=== PATIENT | male | born 1985 | race Caucasian/White ===

== ENCOUNTER → 2016-11-13 | Outpatient (CLI) | payer BC ==
--- NOTE | 2016-11-13 23:52 | CONS ---
DATE OF CONSULTATION: 11/13/2016 CONSULTATION/NEW PATIENT EVALUATION: HISTORY OF PRESENT ILLNESS/SLEEP-WAKE EVALUATION: 31-year-old gentleman who has been evaluated in the sleep center for possible obstructive sleep apnea-hypopnea syndrome. SLEEP SCHEDULE: Patient's usual sleep schedule on working days is from 11:00 p.m. to 7:20 a.m. on weekends from around 11:30 p.m. to 9 or 9:30 a.m. FALLING ASLEEP: Sometimes he has problem with falling asleep. He has a TV set in bedroom. DURING SLEEP: Prefers to sleep on his stomach position. He snores, has witnessed episodes of stopped breathing during this sleep, wakes up with palpitations and heartburn, gasping for air. He worries about his sleep. DURING THE DAY/WAKE STATE: [place] Sleepiness Scale is acceptable range. Usually does not take any naps. He increased his weight about 30 pounds for the last 10 years. No history of hypnagogical hallucinations, sleep paralysis or cataplexy. PAST MEDICAL HISTORY: Positive for allergy, asthma, nasal problems, acid reflux. PAST SURGICAL HISTORY: Sinus surgery, surgery for nasal septum deviation. REVIEW OF SYSTEMS: Awakenings from sleep up to 3 times with up to 2 episodes of nocturia. No fevers. No double vision. No recent chest pain. No shortness of breath. No abdominal pain. No bleeding episodes. No blood in urine. No seizure episodes. FAMILY HISTORY: Hypertension, heart problems, hyperlipidemia, arthritis, asthma, sinus problems snoring, cancer, acid reflux. SOCIAL HISTORY: Negative for smoking or using alcohol. PHYSICAL EXAMINATION: 31-year-old gentleman without distress. VITAL SIGNS: BP 137/97, HR 72, RR 16. Height 5 feet 10 inches. Weight 193. BMI 27.6. Neck 16 inches in circumference. Temperature 97.9. Oxygen saturation at room air 98%. HEENT: PERRLA, EOMI oropharynx low position of soft palate, restriction of nasal breathing, still probably of some nasal septum deviation. NECK: Supple. No JVD. Thyroid is not palpable. LUNGS: Clear to percussion and to auscultation. Good air exchange. No wheezing or rhonchi. HEART: S1, S2 regular. No murmurs, gallops or rubs. ABDOMEN: Soft and nontender. Bowel sounds are present. No organomegaly appreciated. EXTREMITIES: No clubbing or cyanosis. CARDIAC TECHNOLOGIST: Awake, alert, and oriented x3. Cranial nerves 2 to 7 intact. There is no fasciculation or atrophy noted. No focal deficits observed. ASSESSMENT: 1. Snoring, witnessed episodes of stopped breathing during sleep, low position of soft palate, awakenings from sleep, obstructive sleep apnea/hypopnea syndrome surgery. 2. Allergies. 3. Asthma. 4. Acid reflux. 5. Status post sinus surgery. 6. Status post nasal surgery for nasal septum deviation. 7. Some restriction of nasal breathing. Patient still continued some nasal septum deviation. PLAN: 1. Home sleep apnea test for evaluation of patient's breathing during sleep. 2. CPAP/BiPAP titration if sleep study confirms obstructive sleep apnea-hypopnea syndrome. 3. Preferable position during sleep on the side. 4. No driving if patient feels any sleepiness. Patient is aware of civil and criminal liability for unsafe driving. 5. I will see patient for follow-up visit to explain results of the testing and following plan. Thank you very much for referring this patient for consultation. Sincerely, Leonard Garcia MD, PhD, FAASM. Diplomat of [place] [employer], Sleep Medicine Board by [place] [employer] [place] [employer] Customer Experience Advisor of [facility]
== END | disposition home or self-care (01) ==
LOC: SLEEP 15:53
PROVIDERS: ATTEND Internal Medicine
DX: R06.83 Snoring (principal); J45.909 Unspecified asthma, uncomplicated; K21.9 Gastro-esophageal reflux disease without esophagitis; T78.40XA Allergy, unspecified, initial encounter; Z98.890 Other specified postprocedural states
CPT/HCPCS: 99211

== ENCOUNTER → 2017-03-17 | Outpatient (CLI) | payer BC | END | disposition home or self-care (01) | LOC: LABWHC1 09:09 | PROVIDERS: ATTEND Family Medicine | DX: R79.89 Other specified abnormal findings of blood chemistry (principal) | CPT/HCPCS: 36415; 84402; 84403 ==

== ENCOUNTER → 2017-04-28 | Outpatient (CLI) | payer BC ==
--- NOTE | 2017-04-30 06:47 | ECHOF ---
Referral Reason:R00.1 Bradycardia MEASUREMENTS -------- HEIGHT: 180.3 cm WEIGHT: 88.0 kg BP: 131/87 RVIDd: 3.3 cm (< 3.3) IVSd: 1.0 cm (0.6 - 1.1) LVIDd: 4.9 cm (3.9 - 5.3) LVPWd: 1.0 cm (0.6 - 1.1) IVSs: 1.5 cm LVIDs: 3.9 cm LVPWs: 1.5 cm LAESV Index (A-L): 21.39 ml/m Ao Diam: 2.6 cm (2.0 - 3.7) AV Cusp: 2.0 cm (1.5 - 2.6) LA Diam: 3.1 cm (2.7 - 3.8) MV EXCURSION: 24.078 mm (> 18.000) MV EF SLOPE: 206 mm/s (70 - 150) EPSS: 0.6 cm MV E Abdulaziz: 0.55 m/s MV DecT: 323 ms MV A Abdulaziz: 0.49 m/s MV E/A Ratio: 1.12 RAP: 5.00 mmHg RVSP: 9.13 mmHg FINDINGS -------- Sinus rhythm. This was a technically good study. The left ventricular size is normal. Left ventricular wall thickness is normal. Overall left ventricular systolic function is normal with, an EF between 55 - 60 %. The right ventricle is normal in size and function. Normal LA size by volume 22+/-6 ml/m2. The right atrium is normal in size. The aortic valve is trileaflet, and appears structurally normal. No aortic stenosis or regurgitation. The mitral valve leaflets are mildly thickened. There is trace mitral regurgitation. Trace tricuspid regurgitation present. Right ventricular systolic pressure is normal at < 35 mmHg. There is no evidence of pulmonary hypertension. The pulmonic valve is normal. The aortic root size is normal. Normal inferior vena cava with normal inspiratory collapse consistent with estimated right atrial pressure of 5 mmHg. The pericardium is normal. There is no pericardial effusion. CONCLUSIONS -------- 1. Sinus rhythm. 2. Right ventricular systolic pressure is normal at < 35 mmHg. 3. There is no evidence of pulmonary hypertension. 4. The aortic root size is normal. 5. This was a technically good study. 6. The left ventricular size is normal. 7. Overall left ventricular systolic function is normal with, an EF between 55 - 60 %. 8. Normal LA size by volume 22+/-6 ml/m2. 9. The aortic valve is trileaflet, and appears structurally normal. No aortic stenosis or regurgitation. 10. The mitral valve leaflets are mildly thickened. 11. There is trace mitral regurgitation. 12. Trace tricuspid regurgitation present. INDUSTRIAL ACCOUNTANT: Fausto Marinelli RDCS
== END | disposition home or self-care (01) ==
LOC: RADECHMAIN 16:18
PROVIDERS: ATTEND Family Medicine
DX: I08.1 Rheumatic disorders of both mitral and tricuspid valves (principal)
CPT/HCPCS: 93306

== ENCOUNTER → 2017-09-17 | Outpatient (CLI) | payer BC ==
--- NOTE | 2017-09-17 09:23 | US ---
EXAMINATION TYPE: US abdomen complete DATE OF EXAM: 09/17/2017 COMPARISON: NONE CLINICAL HISTORY: S39.011A Strain of Abdominal muscle. Patient stated has multiple abdominal areas of pain noted x 2 months; exercises regularly; on C PAP machine x 2 months EXAM MEASUREMENTS: Liver Length: 16.0 cm Gallbladder Wall: 0.1 cm CBD: 0.4 cm Spleen: 11.3 cm Right Kidney: 10.4 x 5.2 x 4.4 cm Left Kidney: 10.8 x 6.4 x 6.1 cm Pancreas: wnl Liver: Hyperechoic to right renal cortex. Additionally there is poor visualization of the portal tri ads. These findings most commonly related to hepatic steatosis and limits evaluation for underlying h epatic masses. Gallbladder: wnl Evidence for sonographic Vega's sign: no CBD: wnl Spleen: wnl Right Kidney: No hydronephrosis or masses seen Left Kidney: No hydronephrosis or masses seen Upper IVC: wnl Abd Aorta: wnl At upper abdominal area of pain: thickness is noted more prominently at right rectus abdominus muscle at mid abdomen on images #[id number], [id number], [id number], [id number], [id number], and [id number]. At the other areas of pain assess ed no hernia is identified. IMPRESSION: 1. Findings most compatible with hepatic steatosis. 2. Right rectus abdominis muscular prominence in comparison to the left with no focal identifiable he matoma, abscess, or mass. 3. No sonographic evidence of abdominal hernia in the area of the patient's stated pain with the Vals zapata maneuver.
== END | disposition home or self-care (01) ==
LOC: RADUSWWP 07:30
PROVIDERS: ATTEND Family Medicine
DX: S39.011A Strain of muscle, fascia and tendon of abdomen, initial encounter (principal)
CPT/HCPCS: 76700

== ENCOUNTER → 2017-10-14 | Outpatient (CLI) | payer BC ==
[2017-10-14 12:33] LABS: HCT 51.5 % (39.0-53.0); HGB 16.9 gm/dL (13.0-17.5); MCH 28.7 pg (25.0-35.0); MCHC 32.9 g/dL (31.0-37.0); MCV 87.2 fL (80.0-100.0); Mean Platelet Volume 7.4; Platelet Count 214 k/uL (150-450); RDW 12.8 % (11.5-15.5); WBC 5.4 k/uL (3.8-10.6)
== END | disposition home or self-care (01) ==
LOC: LABWHC1 11:48
PROVIDERS: ATTEND Physical Medicine & Rehabilitation
DX: M54.2 Cervicalgia (principal); M24.9 Joint derangement, unspecified; M25.511 Pain in right shoulder; M75.51 Bursitis of right shoulder; E29.1 Testicular hypofunction
CPT/HCPCS: 36415; 82306; 82672; 84402; 84403; 85027

== ENCOUNTER 2017-10-16 10:09 | Day surgery (SDC) | payer BC ==
[2017-10-14 09:17] VITALS: BMI 27.3
[~2017-10-16 10:09] MED LIST: LACTATED RINGERS 1,000 ML IV SCH
[2017-10-16 12:09] VITALS: TEMP 97.4
[2017-10-16] MEDS ORDERED: LIDOCAINE 1% 20 ML VIAL (10MG/ML) FOR IV START INTRADERMA ONE (12:12)
[2017-10-16] MEDS ORDERED: MIDAZOLAM 2 MG/2 ML VIAL ONE (12:18)
[2017-10-16] MEDS ORDERED: fentaNYL (PF) 50 MCG/ML 2 ML AMP ONE (12:18)
[2017-10-16] MEDS ORDERED: PROPOFOL 10 MG/ML 20 ML VIAL IV ONE (12:18)
--- NOTE | 2017-10-16 13:00 | P.PCN ---
Date of Procedure: 10/16/17 Procedure(s) Performed: BRIEF HISTORY: Patient is a 32-year-old pleasant white male, scheduled for an elective colonoscopy as a part of evaluation of blood in the stool. PROCEDURE PERFORMED: Colonoscopy. PREOPERATIVE DIAGNOSIS: Blood in the stool. IV sedation per Anesthesia. PROCEDURE: After informed consent was obtained, the patient, was brought into the endoscopy unit. IV sedation was administered by Anesthesia under continuous monitoring. Digital rectal examination was normal. Initially the Olympus CF- 160 flexible video colonoscope was then inserted in the rectum, gradually advanced into the cecum without any difficulty. Careful examination was performed as the scope was gradually being withdrawn. Ileocecal valve and the appendiceal orifice were visualized and appeared normal. Prep was excellent. Mucosa of the cecum, ascending colon, transverse colon, descending colon, sigmoid colon, and rectum appeared normal. Retroflexion was performed in the rectum and no lesions were seen. The patient tolerated the procedure well. IMPRESSION: Normal-appearing colon from rectum to cecum with no evidence of colorectal neoplasia. RECOMMENDATIONS: Findings of this examination were discussed with the patient as well as his family. He was advised to be a high-fiber diet and take fiber supplements a regular basis..
[2017-10-16 13:23] VITALS: BP 118/60; PULSE 70; RESP 16
== END 2017-10-16 13:33 | disposition home or self-care (01) ==
LOC: ORWHC2ENDO 10:09
PROVIDERS: ATTEND Internal Medicine Gastroenterology
DX: K92.1 Melena (principal); J45.909 Unspecified asthma, uncomplicated; G47.33 Obstructive sleep apnea (adult) (pediatric); Z99.89 Dependence on other enabling machines and devices; Z88.2 Allergy status to sulfonamides; Z79.899 Other long term (current) drug therapy; Z79.890 Hormone replacement therapy
CPT/HCPCS: 45378; J2250; J3010; J2704

== ENCOUNTER → 2018-07-19 | Outpatient (CLI) | payer OTHER | LOC: LABWHC1 06:35 | PROVIDERS: ATTEND Physical Medicine & Rehabilitation | DX: M54.5 Low back pain (principal); M47.817 Spondylosis without myelopathy or radiculopathy, lumbosacral region | CPT/HCPCS: 36415; 82672; 84153; 84402; 84403 ==

== ENCOUNTER 2018-08-11 05:23 | Emergency (ER) | payer OTHER ==
[2018-08-11 05:30] VITALS: PULSE 81; TEMP 98
[2018-08-11] MEDS ORDERED: SODIUM CHLORIDE 0.9% 1,000 ML IV STA (05:38)
[2018-08-11] MEDS ORDERED: FAMOTIDINE 20 MG/2 ML VIAL IV STA (05:39)
--- NOTE | 2018-08-11 05:41 | ED ---
Abdominal Pain HPI - General Chief Complaint: Abdominal Pain Stated Complaint: abd pain Time Seen by Provider: 08/11/18 05:28 Source: EMS Mode of arrival: EMS Limitations: no limitations - History of Present Illness Initial Comments: Charlie is a previously healthy 33-year-old male who presents the emergency department stay for evaluation of epigastric abdominal pain, nausea, vomiting and diarrhea. Patient reports he was in his usual state of health yesterday, he celebrated Gilby with the family, had [place] dinner. Patient reports he is feeling well when he went to bed. He woke at 2 AM with sudden onset of nausea and vomiting. Patient reports he's had innumerable episodes of nonbloody nonbilious emesis and nonbloody diarrhea. Patient reports that he then developed cramping epigastric abdominal pain he states that he was curled up in a ball sitting on the toilet and was unable to move or stand at which time his called 911 for transport to the emergency department. In route to the hospital patient was given Toradol, Zofran and IV fluids and upon arrival reports that his symptoms have improved significantly. Has no history of similar symptoms like this in the past, he was evaluated in the past for blood in his stool was advised he had anal fissures. A colonoscopy with no acute findings. He has no history of ulcer colitis or Crohn 's. He has no history of gallbladder dysfunction or pancreatitis. He does report he had a glass of wine yesterday but has not had any binge alcohol drinking. - Related Data Home Medications Medication Instructions Recorded Confirmed Testosterone Cypionate 100 mg IM ABRAMS 10/16/17 08/11/18 [Depo-Testosterone] Anastrozole [Arimidex] 1 mg PO Q48H 08/11/18 08/11/18 Citalopram Hydrobromide [CeleXA] 10 mg PO HS 08/11/18 08/11/18 Allergies Allergy/AdvReac Type Severity Reaction Status Date / Time Sulfa (Sulfonamide Allergy Rash/Hives Verified 08/11/18 07:03 Antibiotics) Review of Systems ROS Statement: Those systems with pertinent positive or pertinent negative responses have been documented in the HPI. ROS Other: All systems not noted in ROS Statement are negative. Past Medical History Past Medical History: Asthma, GERD/Reflux, GI Bleed, Sleep Apnea/CPAP/BIPAP Additional Past Medical History / Comment(s): sleep apnea with c-pap, environmental allergies, blood in stool and abdominal pain History of Any Multi-Drug Resistant Organisms: None Reported Past Surgical History: No Surgical Hx Reported Additional Past Surgical History / Comment(s): sinus surgery Past Anesthesia/Blood Transfusion Reactions: Previous Problems w/ Anesthesia Additional Past Anesthesia/Blood Transfusion Reaction / Comment(s): "long time coming out of it" Past Psychological History: Anxiety Smoking Status: Never smoker Past Alcohol Use History: Occasional Past Drug Use History: None Reported - Past Family History Father Family Medical History: Coronary Artery Disease (CAD), Myocardial Infarction (DE ) Additional Family Medical History / Comment(s): colon resection Brother(s) Additional Family Medical History / Comment(s): diverticulitis General Exam - General Exam Comments Initial Comments: Physical Exam GENERAL: Patient is well-developed and well-nourished. Patient is nontoxic and well- hydrated and is in no distress. HENT: Normocephalic, Atraumatic. EYES: PERRL, EOMI PULMONARY: Unlabored respirations. No audible rales rhonchi or wheezing was noted. CARDIOVASCULAR: There is a regular rate and rhythm without any murmurs gallops or rubs. ABDOMEN: Soft and nontender with normal bowel sounds. SKIN: Skin is clear with no lesions or rashes and otherwise unremarkable. : Deferred NEUROLOGIC: Patient is alert and oriented x3. Moving all extremities spontaneously MUSCULOSKELETAL: Normal extremities with adequate strength and full range of motion. No lower extremity swelling or edema. No calf tenderness. PSYCHIATRIC: Normal psychiatric evaluation. Limitations: no limitations Limitations: no limitations Course Vital Signs 08/11/18 08/11/18 05:24 07:02 Temperature 98.0 F Pulse Rate 81 Respiratory 18 16 Rate Blood Pressure 135/91 123/72 O2 Sat by Pulse 96 97 Oximetry Medical Decision Making - Medical Decision Making Patient was seen and evaluated history was obtained from patient, and EMS Patient with 3-4 hours of nausea, vomiting, diarrhea and epigastric abdominal pain. Symptoms resolved after IV fluids, Toradol and Zofran. Patient resting comfortably in the ER bed now. Labs will be ordered to evaluate CBC CMP and lipase and amylase. Labs revealed with leukocytosis with neutrophilia this is likely reactive to the acute nausea and vomiting Labs with multiple mild electrolyte abnormalities, mildly elevated creatinine and BUN 6 just above dehydration Patient received 2 L IV fluids fine patient was reevaluated and reports he is feeling much better, nausea has subsided significantly he's had no further vomiting or diarrhea while in the emergency department. Patient believes he has food poisoning which is quite likely. At this time patient's comfortable with the plan for discharge home. I will order the patient a Zofran ODT starter pack should he need further Zofran throughout the day patient is agreeable with this. All questions pertaining care were answered return parameters were discussed patient was discharged home in stable condition. - Lab Data Result diagrams: 08/11/18 05:33 08/11/18 05:33 Lab Results 08/11/18 08/11/18 Range/Units 05:33 05:33 WBC 18.1 H (3.8-10.6) k/uL RBC 6.19 H (4.30-5.90) m/uL Hgb 18.6 H (13.0-17.5) gm/dL Hct 53.7 H (39.0-53.0) % MCV 86.7 (80.0-100.0) fL MCH 30.0 (25.0-35.0) pg MCHC 34.6 (31.0-37.0) g/dL RDW 12.7 (11.5-15.5) % Plt Count 187 (150-450) k/uL Neutrophils % (Manual) 71 % Band Neutrophils % 18 % Lymphocytes % (Manual) 8 % Monocytes % (Manual) 3 % Eosinophils % (Manual) 1 % Neutrophils # (Manual) 16.10 H (1.3-7.7) k/uL Lymphocytes # (Manual) 1.45 (1.0-4.8) k/uL Monocytes # (Manual) 0.54 (0-1.0) k/uL Eosinophils # (Manual) 0.18 (0-0.7) k/uL Nucleated RBCs 0 (0-0) /100 WBC Polychromasia Present Poikilocytosis (manual Present Anisocytosis (manual) Present Sodium 141 (137-145) mmol/L Potassium 4.9 (3.5-5.1) mmol/L Chloride 109 H (98-107) mmol/L Carbon Dioxide 20 L (22-30) mmol/L Anion Gap 12 mmol/L BUN 23 H (9-20) mg/dL Creatinine 1.26 H (0.66-1.25) mg/dL Est GFR (CKD-EPI)AfAm 87 (>60 ml/min/1.73 sqM) Est GFR (CKD-EPI)NonAf 76 (>60 ml/min/1.73 sqM) Glucose 116 H (74-99) mg/dL Calcium 9.1 (8.4-10.2) mg/dL Total Bilirubin 1.1 (0.2-1.3) mg/dL AST 56 (17-59) U/L ALT 46 (21-72) U/L Alkaline Phosphatase 47 (38-126) U/L Total Protein 7.7 (6.3-8.2) g/dL Albumin 4.6 (3.5-5.0) g/dL Amylase 33 (30-110) U/L Lipase 27 (23-300) U/L Disposition Clinical Impression: Nausea vomiting and diarrhea Disposition: HOME SELF-CARE Condition: Good Instructions: Acute Nausea and Vomiting (ED) Is patient prescribed a controlled substance at d/c from ED?: No Referrals: Diego Ortega MD [Primary Care Provider] - 1-2 days Time of Disposition: 07:24
[2018-08-11 05:57] LABS: HCT 53.7 % (39.0-53.0); HGB 18.6 gm/dL (13.0-17.5); MCHC 34.6 g/dL (31.0-37.0); MCV 86.7 fL (80.0-100.0); Mean Platelet Volume 6.9; Platelet Count 187 k/uL (150-450); RBC 6.19 m/uL (4.30-5.90); RDW 12.7 % (11.5-15.5); WBC 18.1 k/uL (3.8-10.6)
[2018-08-11] MEDS ORDERED: SODIUM CHLORIDE 0.9% 1,000 ML IV ONE (06:20)
[2018-08-11 06:35] LABS: Albumin 4.6 g/dL (3.5-5.0); Calcium 9.1 mg/dL (8.4-10.2); Total Bilirubin 1.1 mg/dL (0.2-1.3); Total Protein 7.7 g/dL (6.3-8.2)
[2018-08-11 07:01] LABS: Potassium 4.9 mmol/L (3.5-5.1)
[2018-08-11 07:02] LABS: Band Neutrophils % 18 %; Eosinophils # (M) 0.18 k/uL (0-0.7); Lymphocytes # (M) 1.45 k/uL (1.0-4.8); Monocytes # (M) 0.54 k/uL (0-1.0); Neutrophils % (M) 71 %; Nucleated Red Blood Cells 0 /100 WBC (0-0); Total Cells Counted 200
[2018-08-11 07:03] VITALS: BP 123/72; RESP 16
[2018-08-11 07:04] LABS: Polychromasia Present
[2018-08-11 07:06] LABS: Poikilocytosis (M) Present
[2018-08-11 07:07] LABS: Anisocytosis (M) Present
[2018-08-11] MEDS ORDERED: ONDANSETRON 4 MG ODT STARTER PACK 2 TAB BTL PO STA (07:20)
== END 2018-08-11 07:50 | disposition home or self-care (01) ==
LOC: EC 05:23
DX: R11.2 Nausea with vomiting, unspecified (principal); R19.7 Diarrhea, unspecified; D72.0 Genetic anomalies of leukocytes; E87.8 Other disorders of electrolyte and fluid balance, not elsewhere classified; R79.89 Other specified abnormal findings of blood chemistry; R10.13 Epigastric pain; G47.30 Sleep apnea, unspecified; F41.9 Anxiety disorder, unspecified; Z88.2 Allergy status to sulfonamides; Z79.899 Other long term (current) drug therapy; Z99.89 Dependence on other enabling machines and devices; Z83.79 Family history of other diseases of the digestive system
CPT/HCPCS: 36415; 80053; 82150; 83690; 85025; 99284; 96374; 96361 ×2; S0119

== ENCOUNTER → 2023-10-05 | Outpatient (CLI) | payer BC ==
--- NOTE | 2023-10-05 08:41 | US ---
EXAMINATION TYPE: US groin LT DATE OF EXAM: 10/05/2023 COMPARISON: NONE CLINICAL INDICATION: Male, 38 years old with history of K40.90 UNIL INGUINAL HERNIA, W/O OBST OR GANG R, NO; Patient noticed pain in the left groin 3 weeks ago after strain with exercise. TECHNIQUE: Scanned left groin at patient's area of concern. FINDINGS: Scanned left groin. Question- possible defect in abdominal wall measuring 0.5 cm. Prominent area seen anteriorly measures 3.2 x 2.7 x 1.4 cm. Consider additional modality to confirm. IMPRESSION: Suspected ventral wall hernia. Confirmation with CT is recommended if clinically warrante d.
== END | disposition home or self-care (01) ==
LOC: RADUSWWP 07:21
PROVIDERS: ATTEND Family Medicine
DX: K40.90 Unilateral inguinal hernia, without obstruction or gangrene, not specified as recurrent (principal); R10.30 Lower abdominal pain, unspecified

== ENCOUNTER → 2023-10-09 | Outpatient (CLI) | payer BC ==
--- NOTE | 2023-10-09 09:29 | CT ---
EXAMINATION TYPE: CT abdomen pelvis wo con CT DLP: 543.20 mGycm, Automated exposure control for dose reduction was used. DATE OF EXAM: 10/09/2023 9:10 AM COMPARISON: None. CLINICAL INDICATION:Male, 38 years old with history of K43.9 VENTRAL HERNIA WITHOUT OBSTRUCTION OR GA NGRENE; Ventral hernia without obstruction or gangrene TECHNIQUE: Axial CT abdomen pelvis wo con;Sagittal and coronal reformats were created on a separate workstation. Contrast used: mL of , (none if empty) Oral contrast used: without Oral Contrast (none if empty) FINDINGS: LOWER CHEST: Unremarkable ABDOMEN LIVER: Unremarkable GALLBLADDER AND BILE DUCTS: Unremarkable. PANCREAS: Unremarkable. SPLEEN: Unremarkable. ADRENAL GLANDS: Unremarkable. KIDNEYS AND URETERS: No evidence of hydronephrosis or renal calculus. The ureters are unremarkable. PELVIS BLADDER: Unremarkable REPRODUCTIVE: Unremarkable. ABDOMEN & PELVIS STOMACH AND BOWEL: No evidence of bowel obstruction. PERITONEUM/RETROPERITONEUM: No evidence of pneumoperitoneum or free fluid. VASCULATURE: No evidence of aortic aneurysm. MUSCULOSKELETAL: No acute osseous abnormalities LYMPH NODES: No gross evidence for lymphadenopathy. SOFT TISSUE/ABDOMINAL WALL: Fat-containing umbilical hernia measuring 8 mm at the neck. IMPRESSION: 1. Fat-containing umbilical hernia measuring 8 mm at the neck. 2. No acute abdominal process.
== END | disposition home or self-care (01) ==
LOC: RADCTMAIN 08:38
PROVIDERS: ATTEND Family Medicine
DX: K42.0 Umbilical hernia with obstruction, without gangrene (principal); K43.9 Ventral hernia without obstruction or gangrene; R10.9 Unspecified abdominal pain
CPT/HCPCS: 74176